=== PATIENT | female | born 1950 ===

== ENCOUNTER 2017-01-19 09:08 | Emergency (ER) | payer OTHER ==
[2017-01-19 09:20] VITALS: BP 150/74
[2017-01-19] MEDS ORDERED: Betamethasone INJ* 6 MG/ML 5 ML VIAL (30 MG) IM ONE (11:25)
--- NOTE | 2017-01-19 11:42 | UC ---
Back Pain HPI - HPI Summary HPI Summary: Patient presents to with right lower back pain and decreased urination. She has been moving and states she may have pulled a muscle. She notes to the right of the lumbar spine which radiates to the lateral side of the upper thigh. Decreased urination x 1 day. Hx of UTI's. She also notes to some allergies which she is requesting a steroid. She takes claritin daily with minimal relief of symptoms. Endorses rhinorrhea, ear fullness and posterior drainage. - History of Current Complaint Chief Complaint: UCBackPain Stated Complaint: UTI Time Seen by Provider: 01/19/17 10:04 Hx Obtained From: Patient ?: No Onset/Duration: Sudden Onset Timing: Constant Severity Initially: Moderate Severity Currently: Moderate Pain Intensity: 2 Pain Scale Used: 0-10 Numeric Back Pain: Is Discrete @ - right lower spine with radiation to the right thigh Character: Aching Aggravating: Movement, Bending, Walking Alleviating: Rest, Heat Associated Signs And Symptoms: Positive: Negative, Pain with Weight Bearing - Risk Factors AAA Risk Factors: Negative TAD Risk Factors: Negative Cauda Equina Risk Factors: Negative Epidural Abscess Risk Factors: Negative - Allergies/Home Medications Allergies/Adverse Reactions: Allergies Allergy/AdvReac Type Severity Reaction Status Date / Time No Known Allergies Allergy Verified 11/20/13 08:17 PMH/Surg Hx/FS Hx/Imm Hx Previously Healthy: Yes - Surgical History Surgical History: Yes Surgery Procedure, Year, and Place: left knee replacement. meniscus repair right. wrist surgery x2. neck surgery from fall - Family History Known Family History: Positive: Unknown - Social History Occupation: Unemployed Lives: With Family Alcohol Use: None Substance Use Type: None Smoking Status (MU): Never Smoked Tobacco Review of Systems Constitutional: Negative Skin: Negative ENT: Ear Ache - fullness, Nasal Discharge Cardiovascular: Negative Motor: Negative Neurovascular: Negative Musculoskeletal: Myalgia - right lower back pain Neurological: Negative Psychological: Negative All Other Systems Reviewed And Are Negative: Yes Physical Exam Triage Information Reviewed: Yes Appearance: Well-Appearing, No Pain Distress, Well-Nourished Vital Signs: Initial Vital Signs Temp 97.4 F 01/19/17 09:16 Pulse 89 01/19/17 09:16 Resp 20 01/19/17 09:16 BP 150/74 01/19/17 09:16 Pulse Ox 97 01/19/17 09:16 Vital Signs Reviewed: Yes Eye Exam: Normal Eyes: Positive: Conjunctiva Clear, Other: - cobblestoning ENT: Positive: Nasal drainage Neck exam: Normal Neck: Positive: Supple, No Lymphadenopathy Respiratory Exam: Normal Respiratory: Positive: Chest non-tender Cardiovascular Exam: Normal Cardiovascular: Positive: RRR Musculoskeletal Exam: Normal Musculoskeletal: Positive: Strength Intact Neurological Exam: Normal Neurological: Positive: Alert Psychological: Positive: Normal Response To Family, Age Appropriate Behavior Skin Exam: Normal Back Pain Course/Dx - Course Course Of Treatment: Presents with right sided low back pain with radiation to the right thigh. Patient thought it was a UTI d/t low urine output x 1 day with no other UTI symptoms. UA WNL. Back pain on examination with twisting, but otherwise NL exam. Patient is requesting steroids for her allergies. Prednisone given for 5 days. Flexiril for back and leg pain. Referrals to [facility] [place]. - Differential Dx/Diagnosis Differential Diagnosis/HQI/PQRI: Fracture, Renal Colic, Strain, Sprain Provider Diagnoses: Muscle Strain; Allergies Discharge - Discharge Plan Condition: Stable Disposition: HOME Prescriptions: Cyclobenzaprine TAB* [Flexeril TAB*] 10 mg PO BID PRN #16 tab PRN Reason: Pain predniSONE TAB* [Deltasone TAB*] 50 mg PO DAILY #5 tab MDD 1 Patient Education Materials: Low Back Strain (ED), Allergies (ED) Referrals: [facility] [Provider Group] [facility] [Provider Group] [facility] [Provider Group] No Primary Care Phys,NOPCP [Primary Care Provider] - Additional Instructions: Dx. Muscle Strain Flexeril: This medication is a muscle relaxant and can help relieve muscle spasms, muscle strain, or pain sensations. Flexeril can cause side effects that may impair your thinking or reactions. Be careful if you drive or do anything that requires you to be awake and alert. Avoid drinking alcohol, which can increase some of the side effects of Flexeril. Ibuprofen 600mg three times daily with meals for discomfort. Return to ED if symptoms worsen or fail to improve, notice worsening swelling, warmth or redness around the joint, develop fever, or pain is uncontrolled with OTC medications. Moist heat to the area for comfort. Warm showers or baths may improve symptoms. It is important to remain mobile as tolerated to prevent stiffening of the joints and delay healing. Follow up with your PCP. If symptoms remain for > 6 weeks, please seek special medical attention from an orthopedic physician.
== END 2017-01-19 11:55 | disposition home or self-care (01) ==
LOC: UCEAST 09:08
DX: S39.012A Strain of muscle, fascia and tendon of lower back, initial encounter (principal); T78.40XA Allergy, unspecified, initial encounter; X58.XXXA Exposure to other specified factors, initial encounter; Y92.9 Unspecified place or not applicable
CPT/HCPCS: 81003; 99202; G0463; J0702

== ENCOUNTER 2017-01-25 07:11 | Emergency (ER) | payer OTHER ==
[2017-01-25 07:37] VITALS: BP 148/76
--- NOTE | 2017-01-25 09:14 | RAD ---
INDICATION: Shortness of breath, cough, congestion, edema, pneumonia, CHF. COMPARISON: No relevant prior exams available on the [facility] for comparison. TECHNIQUE: Dual energy PA and routine lateral views of the chest were obtained. REPORT: Normal range lung volumes. No alveolar consolidation, focal pulmonary lesion, pleural effusion, pneumothorax. The heart, pulmonary vasculature, and mediastinal contours are unremarkable. Mild thoracic degenerative spondylosis. IMPRESSION: No evidence for acute intrathoracic disease.
--- NOTE | 2017-01-25 10:27 | UC ---
I, Artemio,Scott, scribed for Tremayne Toussaint MD on 01/25/17 at 0843 . Respiratory Complaint HPI - HPI Summary HPI Summary: This 66 y/o female presents to [facility] for chest congestion since 2 days ago. Pt was recently evaluated for head congestion and was rx with prednisone about a week ago. Symptoms resolved, but pt now reports positive wheezing, sore throat, sore voice, productive cough with green sputum, dyspnea, and eye discharge. PMHx does not include DM or cardiac dz. Dyspnea is worse when lying down. Pt is noted with BLE edema at time of initial evaluation. PMHx includes HTN, thyroid dz, and left total knee placement, but does not include DM or any cardiac dz. NKDA reviewed and confirmed with pt. Pt does reports some seasonal allergies "with grass". Pt recently relocated from [place] to [facility]. - History of Current Complaint Chief Complaint: UCRespiratory Stated Complaint: CONGESTION Time Seen by Provider: 01/25/17 07:40 Hx Obtained From: Patient, Medical Records Onset/Duration: Gradual Onset Character: Cough: Productive - green sputum Associated Signs And Symptoms: Positive: Dyspnea, Wheezing, Calf Swelling - bilat, Nasal Congestion, Hoarseness. Negative: Fever - Allergies/Home Medications Allergies/Adverse Reactions: Allergies Allergy/AdvReac Type Severity Reaction Status Date / Time No Known Allergies Allergy Verified 01/25/17 07:20 Home Medications: Home Medications Ibuprofen [Ibuprofen 200 MG] 200 mg PO Q6H PRN 01/25/17 [History Confirmed 01/25] Loratadine [Claritin 10 MG CAP] 10 mg PO DAILY 01/25/17 [History Confirmed 01/25] Triamcinolone Acetonide (Nasal [Nasacort Allergy 24Hr Chi] 55 mcg NA 01/25/17 [ History] PMH/Surg Hx/FS Hx/Imm Hx Endocrine History: Thyroid Disease Cardiovascular History: Hypertension - Surgical History Surgical History: Yes Surgery Procedure, Year, and Place: left knee replacement. meniscus repair right. wrist surgery x2. neck surgery from fall - Family History Known Family History: Negative: Cardiac Disease - Social History Alcohol Use: None Substance Use Type: None Smoking Status (MU): Never Smoked Tobacco Review of Systems Constitutional: Negative Skin: Negative Eyes: Drainage ENT: Sinus Congestion Respiratory: Other - wheezing Cardiovascular: Negative Gastrointestinal: Negative Genitourinary: Negative Motor: Negative Neurovascular: Negative Musculoskeletal: Edema - BLE Neurological: Negative Psychological: Negative All Other Systems Reviewed And Are Negative: Yes Physical Exam Triage Information Reviewed: Yes Vital Signs: Initial Vital Signs Temp 98.1 F 01/25/17 07:22 Pulse 95 01/25/17 07:22 Resp 16 01/25/17 07:22 BP 148/76 01/25/17 07:22 Pulse Ox 93 01/25/17 07:22 Vital Signs Reviewed: Yes - Additional Comments The patient is well-nourished in no acute distress and in no acute pain. The skin is warm and dry and skin color reflects adequate perfusion. Periorbital swelling. HEENT: The head is normocephalic and atraumatic. The pupils are equal and reactive. The conjunctivae are clear and without drainage. Positive post nasal drips. Post pharynx noted with beefy erythema. Positive maxillary sinus tenderness. Neck is supple with full range of motion and non-tender. There are no carotid bruits. There is no neck vein distension. Respiratory: Chest is non-tender. Lungs are clear to auscultation and breath sounds are symmetrical and equal. Cardiovascular: Hear is regular rate and rhythm. There is no murmur or rub auscultated. There is no peripheral edema and pulses are symmetrical and equal. Abdomen: The abdomen is soft and non-tender. There are normal bowel sounds heard in all four quadrants and there is no organomegaly palpated. Musculoskeletal: There is no back pain noted. Extremities are non-tender with full range of motion. There is good capillary refill. Positive bipedal edema that is warm to touch. Neurological: Patient is alert and oriented to person, place and time. The patient has symmetrical motor strength in all four extremities. Cranial nerves are grossly intact. Deep tendon reflexes are symmetrical and equal in all four extremities. Psychiatric: The patient has an appropriate affect and does not exhibit any anxiety or depression. UC Diagnostic Evaluation - Laboratory O2 Sat by Pulse Oximetry: 93 - Radiology Xray Interpretation: No Acute Changes Radiology Interpretation Completed By: Radiologist Respiratory Course/Dx - Course Course Of Treatment: Vital signs reviewed and noted with blood pressure of 148/ 76. Home med list reviewed and confirmed. PMHx includes known HTN. This 66 y/o female presents with chest congestion since 2 days ago as well as persistent head congestion since a week ago. Pt was prescribed prednisone but not antibiotics. Upon examination pt is noted with bipedal edema. PMHx does include total knee placement at LLE knee. CXR is ordered in order to r/o any CHF. - Differential Dx/Diagnosis Differential Diagnosis/HQI/PQRI: Bronchitis, CHF, Lower Resp Infection, Sinusitis Provider Diagnoses: 1) acute sinusitis 2) acute bronchitis 3) Known HTN with poorly controlled blood pressure. Discharge - Discharge Plan Condition: Stable Disposition: HOME Prescriptions: Albuterol HFA INHALER* [Ventolin HFA Inhaler*] 1 - 2 puff INH Q6H PRN #1 mdi PRN Reason: shortness of breath Levofloxacin TAB* [Levaquin TAB*] 500 mg PO DAILY #10 tab Spacer/Aerosol-Holding Chamber [Aerochamber Plus] 1 mis .SEE ORDER QID #1 mis Patient Education Materials: Albuterol (By breathing), Levofloxacin (By mouth) , Sinusitis (ED), Acute Bronchitis (ED), How to Use a Metered-Dose Inhaler and a Spacer (ED) Referrals: [facility] [Outside] - 2 Days The documentation as recorded by the Artemio diaz Soohyun accurately reflects the service I personally performed and the decisions made by , Tremayne Toussaint MD.
== END 2017-01-25 09:57 | disposition home or self-care (01) ==
LOC: UCEAST 07:11
DX: J01.90 Acute sinusitis, unspecified (principal); J20.9 Acute bronchitis, unspecified; I10 Essential (primary) hypertension
CPT/HCPCS: 71020; 99212; G0463